=== PATIENT | female | born 1955 | race Caucasian/White ===

== ENCOUNTER → 2016-08-26 | Outpatient (CLI) | payer OTHER ==
[~2016-08-26] MED LIST: CIPR500T87 PO; SIMV5TAB5 PO
== END | disposition home or self-care (01) ==
LOC: RAD 11:55
PROVIDERS: ATTEND Nurse Practitioner Family
DX: M51.36 Other intervertebral disc degeneration, lumbar region (principal)
CPT/HCPCS: 72110

== ENCOUNTER → 2017-02-12 | Outpatient (CLI) | payer OTHER ==
[~2017-02-12] MED LIST changes: +LORA10TA75 PO; +NITR100C6 PO; +SIMV20TA3 PO
[2017-02-12 09:04] LABS: PATH.CAST-FLAG NOT PRESENT; SPERM-FLAG NOT PRESENT; SRC-FLAG NOT PRESENT; XTAL-FLAG NOT PRESENT; YLC-FLAG NOT PRESENT
== END | disposition home or self-care (01) ==
LOC: STAR 08:01
PROVIDERS: ATTEND Obstetrics & Gynecology Female Pelvic Medicine and Reconstructive Surgery
DX: Z01.818 Encounter for other preprocedural examination (principal); R94.31 Abnormal electrocardiogram [ECG] [EKG]; R32 Unspecified urinary incontinence; N81.10 Cystocele, unspecified; N81.6 Rectocele
CPT/HCPCS: 81001; 87086; 93005

== ENCOUNTER → 2017-09-18 | Outpatient (CLI) | payer OTHER | END | disposition home or self-care (01) | LOC: CFH 07:37 | PROVIDERS: ATTEND Nurse Practitioner Family | DX: Z12.31 Encounter for screening mammogram for malignant neoplasm of breast (principal) | CPT/HCPCS: 77067 ==

== ENCOUNTER → 2018-09-22 | Outpatient (CLI) | payer OTHER ==
[~2018-09-22] MED LIST changes: +SIMV5TAB14 PO; -SIMV5TAB5 PO
== END | disposition home or self-care (01) ==
LOC: CFH 10:06
PROVIDERS: ATTEND Nurse Practitioner Family
DX: Z12.31 Encounter for screening mammogram for malignant neoplasm of breast (principal)
CPT/HCPCS: 77067

== ENCOUNTER 2019-05-24 11:00 | Outpatient (CLI) | payer MEDICARE ==
[2019-05-24] MEDS ORDERED: ROSU5TAB PO (11:35)
[2019-05-24] MEDS ORDERED: ALEN70TA6 PO (11:35)
[2019-05-24] MEDS ORDERED: VITAMIN D PO (11:35)
[2019-05-24] MEDS ORDERED: TELM1TAB26 PO (11:35)
[2019-05-24 12:00] LABS: BASOPHILS # (AUTO) 0.03 x10^3/uL (0-0.1); BASOPHILS % (AUTO) 1 % (0-1); EOSINOPHILS # (AUTO) 0.17 x10^3/uL (0-0.4); EOSINOPHILS % (AUTO) 3 % (1-7); LYMPHOCYTES # (AUTO) 2.41 x10^3/uL (1-3.4); LYMPHOCYTES % (AUTO) 40 % (22-44); MD NO; MEAN CORPUSCULAR HEMOGLOBIN 31.2 pg (27.0-34.8); MEAN CORPUSCULAR HGB CONC 33.6 g/dL (32.4-35.8); MEAN CORPUSCULAR VOLUME 92.9 fL (80-100); MEAN PLATELET VOLUME 8.9 fL (7.4-10.4); MONOCYTES # (AUTO) 0.33 x10^3/uL (0.2-0.8); MONOCYTES % (AUTO) 5 % (2-9); NEUTROPHILS # (AUTO) 3.15 x10^3/uL (1.8-6.8); NEUTROPHILS % (AUTO) 52 % (42-75); PLATELET COUNT 269 x10^3/uL (130-400); RED BLOOD COUNT 4.38 x10^6/uL (3.82-5.3); RED CELL DISTRIBUTION WIDTH 12.8 % (9.6-15.2)
[2019-05-24 12:07] LABS: MICROSCOPIC NOT IND
[2019-05-24 12:08] LABS: INTERNATIONAL NORMALIZED RATIO 0.94 (0.93-1.1)
[2019-05-24 12:14] LABS: CULTURE INDICATED? NO
[2019-05-24 12:15] LABS: ALBUMIN 3.9 g/dL (3.4-5.0); ANION GAP 7 mmol/L (5-15); CALCIUM 8.8 mg/dL (8.5-10.1); CHLORIDE 108 mmol/L (98-107)
[2019-05-24 12:30] LABS: ALANINE AMINOTRANSFERASE 48 U/L (12-78); ALKALINE PHOSPHATASE 70 U/L (45-117); BILIRUBIN,TOTAL 0.5 mg/dL (0.2-1.0); CREATININE 0.72 mg/dL (0.55-1.02); TOTAL PROTEIN 7.1 g/dL (6.4-8.2)
== END 2019-05-24 23:59 | disposition home or self-care (01) ==
LOC: STAR 11:00
PROVIDERS: ATTEND Neurological Surgery
DX: Z01.818 Encounter for other preprocedural examination (principal); M47.22 Other spondylosis with radiculopathy, cervical region; M50.123 Cervical disc disorder at C6-C7 level with radiculopathy; Z79.899 Other long term (current) drug therapy
CPT/HCPCS: 36415; 71046; 72050; 80053; 81003; 85025; 85610; 85730; 93005

== ENCOUNTER 2019-05-31 05:42 | Inpatient (IN) | payer MEDICARE ==
[~2019-05-31] VITALS: Ht 152.4 cm; Wt 59.0 kg
[~2019-05-31 05:42] MED LIST changes: +ALEN70TA6 PO; +ROSU5TAB PO; +SIMV20TA19 PO; -SIMV20TA3 PO; +TELM1TAB26 PO; +VITAMIN D PO
[2019-05-31] MEDS: LACTATED RINGERS 1,000 ML IV SCH ×2 (06:26→07:16)
[2019-05-31] MEDS ORDERED: BUPIVACAINE/PF 0.5% ONE (06:59)
[2019-05-31] MEDS ORDERED: BACITRACIN 50,000 UNIT ONE ×2 (07:00)
[2019-05-31] MEDS ORDERED: THROMBIN 5,000 UNIT VIAL TP ONE (07:00)
[2019-05-31] MEDS ORDERED: EPINEPHRINE 1 MG/ML, 1ML ONE ×2 (07:00)
[2019-05-31] MEDS ORDERED: GABAPENTIN 300 MG CAPSULE PO ONE (07:30)
[2019-05-31] MEDS ORDERED: ACETAMINOPHEN 500 MG TABLET PO ONE (07:30)
[2019-05-31] MEDS ORDERED: MIDAZOLAM 1 MG/ML, 2ML ONE (07:32)
[2019-05-31] MEDS ORDERED: LIDOCAINE-MPF 2% ,5ML ONE (07:32)
[2019-05-31] MEDS ORDERED: PHENYLEPHRINE 10 MG/ML ONE (07:32)
[2019-05-31] MEDS ORDERED: SODIUM CHLORIDE 0.9% PF 10ML ONE (07:32)
[2019-05-31] MEDS ORDERED: FENTANYL PF 250 MCG/5ML ONE (07:32)
[2019-05-31] MEDS ORDERED: SUCCINYLCHOLINE 20 MG/ML, 10ML ONE (07:32)
[2019-05-31] MEDS ORDERED: DEXAMETHASONE 4 MG/ML, 1ML ONE ×2 (07:32)
[2019-05-31] MEDS ORDERED: ONDANSETRON 2MG/ML, 2ML ONE (07:32)
[2019-05-31] MEDS ORDERED: PROPOFOL 10 MG/ML, 20ML ONE (07:32)
[2019-05-31] MEDS ORDERED: CEFAZOLIN 1,000 MG ONE ×2 (07:32)
[2019-05-31] MEDS ORDERED: PROPOFOL 10 MG/ML, 50ML ONE (07:32)
[2019-05-31] MEDS ORDERED: MEPERIDINE/PF 25MG/ML,1ML IVPush PRN (08:00)
[2019-05-31] MEDS ORDERED: ONDANSETRON 2MG/ML, 2ML IV PRN ×2 (08:00→12:00)
[2019-05-31] MEDS ORDERED: EPHEDRINE 50 MG/ML, 1ML IVPush PRN (08:00)
[2019-05-31] MEDS ORDERED: OXYcodone 5 MG/5 ML ORAL.SOL UDC PO PRN (08:00)
[2019-05-31] MEDS ORDERED: hydrALAzine 20 MG/ML, 1ML IV PRN (08:00)
[2019-05-31] MEDS ORDERED: LABETALOL 5MG/ML, 20ML IV PRN (08:00)
[2019-05-31] MEDS ORDERED: HYDROmorphone 2 MG/ML, 1ML IVPush PRN (08:00)
[2019-05-31] MEDS ORDERED: PROMETHAZINE 25 MG/ML, 1ML IV PRN (08:00)
[2019-05-31] MEDS ORDERED: FENTANYL PF 100 MCG/2ML ONE (09:57)
[2019-05-31] MEDS ORDERED: HYDROmorphone 1 MG/ML, 1ML INJ ONE (09:58)
[2019-05-31] MEDS ORDERED: OXYcodone 5 MG/5 ML ORAL.SOL UDC ONE (09:59)
[2019-05-31] MEDS: FENTANYL PF 100 MCG/2ML IV PRN ×4 (10:01→10:43)
[2019-05-31] MEDS ORDERED: METHOCARBAMOL 1,000 MG in DEXTROSE 5% 100 ML IV ONE (10:30)
[2019-05-31 12:00] VITALS: BP 143/83
[2019-05-31] MEDS ORDERED: DIPHENHYDRAMINE 25 MG CAPSULE PO PRN (12:00)
[2019-05-31] MEDS ORDERED: HYDROcodone/APAP 5/325 TABLET PO PRN (12:00)
[2019-05-31] MEDS ORDERED: MAGNESIUM HYDROXIDE 8%, 30ML UDC PO PRN (12:00)
[2019-05-31] MEDS ORDERED: BISACODYL 10 MG SUPP PR PRN (12:00)
[2019-05-31] MEDS ORDERED: DIPHENHYDRAMINE 50 MG/ML, 1ML IVPush PRN (12:00)
[2019-05-31] MEDS ORDERED: HYDROmorphone 2 MG/ML, 1ML IM PRN (12:00)
[2019-05-31] MEDS ORDERED: PROMETHAZINE 25 MG/ML, 1ML IM PRN (12:00)
[2019-05-31] MEDS ORDERED: DIPHENHYDRAMINE 50 MG/ML, 1ML IM PRN (12:00)
[2019-05-31] MEDS ORDERED: HYDROmorphone 2MG TABLET PO PRN (12:00)
[2019-05-31] MEDS: NS + 20MEQ KCL 1,000 ML IV SCH ×2 (13:18→22:00)
[2019-05-31] MEDS: CEFAZOLIN PMX 1GM/50ML 50 ML IVPB SCH ×2 (17:24→23:24)
[2019-05-31] MEDS: METHOCARBAMOL 750 MG TABLET PO SCH ×2 (17:24→23:24)
[2019-05-31 20:11] VITALS: BP 116/67
[2019-05-31] MEDS: OXYcodone/APAP 5/325MG TABLET PO PRN (20:21)
[2019-05-31 23:29] VITALS: BP 112/65
[2019-06-01] MEDS: OXYcodone/APAP 5/325MG TABLET PO PRN (03:17)
[2019-06-01 03:41] VITALS: BP 102/51
[2019-06-01 07:09] VITALS: BP 121/69
[2019-06-01] MEDS: NS + 20MEQ KCL 1,000 ML IV SCH (07:30)
[2019-06-01] MEDS ORDERED: SENNA/DOCUSATE TABLET PO SCH (09:00)
[2019-06-01] MEDS: METHOCARBAMOL 750 MG TABLET PO SCH (09:26)
[2019-06-01] MEDS ORDERED: ENOXAPARIN 40 MG/0.4 ML SQ SCH (10:00)
[2019-06-01] MEDS ORDERED: OXYC-302 PO (10:09)
[2019-06-01] MEDS ORDERED: METH750T87 PO (10:09)
== END 2019-06-01 11:00 | disposition home or self-care (01) | DRG 472 ==
LOC: ORIP 05:42 → 4NE 11:16 → DCLOUNGE 06-01 10:45
PROVIDERS: ADMIT Neurological Surgery; ATTEND Neurological Surgery
PROC: 00NW0ZZ Release Cervical Spinal Cord, Open Approach (ICD-10-PCS; 2019-05-31)
PROC: 0RB30ZZ Excision of Cervical Vertebral Disc, Open Approach (ICD-10-PCS; 2019-05-31)
PROC: 01N10ZZ Release Cervical Nerve, Open Approach (ICD-10-PCS; 2019-05-31)
PROC: 4A11X4G Monitoring of Peripheral Nervous Electrical Activity, Intraoperative, External Approach (ICD-10-PCS; 2019-05-31)
PROC: 0RG20A0 Fusion of 2 or more Cervical Vertebral Joints with Interbody Fusion Device, Anterior Approach, Anterior Column, Open Approach (ICD-10-PCS; principal; 2019-05-31 07:30)
DX: M43.12 Spondylolisthesis, cervical region (principal); G99.2 Myelopathy in diseases classified elsewhere; M48.02 Spinal stenosis, cervical region; Z88.6 Allergy status to analgesic agent; I10 Essential (primary) hypertension; E78.5 Hyperlipidemia, unspecified; Z86.73 Personal history of transient ischemic attack (TIA), and cerebral infarction without residual deficits; G43.909 Migraine, unspecified, not intractable, without status migrainosus; Z90.49 Acquired absence of other specified parts of digestive tract; R20.8 Other disturbances of skin sensation; M54.12 Radiculopathy, cervical region
CPT/HCPCS: 72040; C1713; G0378; J0171; J0690; J1100; J1650; J2250; J2405; J2704; J3010; J3480; C1762; J0330; J2370; J2800; J7120

== ENCOUNTER 2019-11-06 13:22 | Emergency (ER) | payer MEDICARE ==
[~2019-11-06] VITALS: Ht 157.5 cm; Wt 58.0 kg
[~2019-11-06 13:22] MED LIST changes: +METH750T87 PO; +OXYC-302 PO
[2019-11-06 14:27] LABS: BASOPHILS # (AUTO) 0.03 x10^3/uL (0-0.1); BASOPHILS % (AUTO) 0 % (0-1); EOSINOPHILS # (AUTO) 0.17 x10^3/uL (0-0.4); EOSINOPHILS % (AUTO) 2 % (1-7); LYMPHOCYTES % (AUTO) 36 % (22-44); MD NO; MEAN CORPUSCULAR HEMOGLOBIN 30.4 pg (27.0-34.8); MEAN CORPUSCULAR HGB CONC 32.8 g/dL (32.4-35.8); MEAN CORPUSCULAR VOLUME 92.9 fL (80-100); MEAN PLATELET VOLUME 8.9 fL (7.4-10.4); MONOCYTES # (AUTO) 0.39 x10^3/uL (0.2-0.8); MONOCYTES % (AUTO) 5 % (2-9); NEUTROPHILS # (AUTO) 4.44 x10^3/uL (1.8-6.8); NEUTROPHILS % (AUTO) 57 % (42-75); PLATELET COUNT 300 x10^3/uL (130-400); RED BLOOD COUNT 4.93 x10^6/uL (3.82-5.3); RED CELL DISTRIBUTION WIDTH 13.9 % (9.6-15.2)
--- NOTE | 2019-11-06 14:33 | NUR ---
FOOT DOCTOR: PT TO ROOM VIA WHEELCHAIR AT THIS TIME. OLIVER
[2019-11-06 14:38] LABS: ANION GAP 5 mmol/L (5-15); CALCIUM 9.2 mg/dL (8.5-10.1); CHLORIDE 108 mmol/L (98-107)
[2019-11-06 14:45] LABS: ALANINE AMINOTRANSFERASE 74 U/L (12-78); ALKALINE PHOSPHATASE 79 U/L (45-117); BILIRUBIN,TOTAL 0.6 mg/dL (0.2-1.0); CREATININE 0.84 mg/dL (0.55-1.02); TOTAL PROTEIN 7.2 g/dL (6.4-8.2); TROPONIN I < 0.015 ng/mL (0.000-0.045)
[2019-11-06] MEDS ORDERED: KETOROLAC 30 MG/1 ML ONE (16:59)
[2019-11-06] MEDS ORDERED: KETOROLAC 30 MG/1 ML IM ONE (17:00)
[2019-11-06 17:06] VITALS: BP 131/69
--- NOTE | 2019-11-06 17:09 | NUR ---
MEDICATED FOR CONTINUED CP. AWAITING RE-EVAL
--- NOTE | 2019-11-06 18:06 | NUR ---
SOME IMPROVEMENT IN PAIN AFTER MEDICATED FOR SAME. AMBULATED TO DISCHARGE WINDOW, STEADY GAIT.
== END 2019-11-06 18:10 | disposition home or self-care (01) ==
LOC: ED 15:57
DX: R07.89 Other chest pain (principal); R06.02 Shortness of breath; R42 Dizziness and giddiness; R94.31 Abnormal electrocardiogram [ECG] [EKG]; I10 Essential (primary) hypertension; E78.5 Hyperlipidemia, unspecified
CPT/HCPCS: 36415; 71046; 80053; 84484; 85025; 93005; 96372; 99285; J1885

== ENCOUNTER 2019-12-24 13:05 | Outpatient (CLI) | payer MEDICARE | END 2019-12-24 23:59 | disposition home or self-care (01) | LOC: CFH 13:05 | PROVIDERS: ATTEND Nurse Practitioner Family | DX: I11.9 Hypertensive heart disease without heart failure (principal); E78.5 Hyperlipidemia, unspecified; I45.10 Unspecified right bundle-branch block; R07.9 Chest pain, unspecified; R94.31 Abnormal electrocardiogram [ECG] [EKG] | CPT/HCPCS: 93306 ==

== ENCOUNTER → 2020-02-14 | Outpatient (CLI) | payer MEDICARE | END | disposition home or self-care (01) | LOC: RAD 15:15 | PROVIDERS: ATTEND Nurse Practitioner Family | DX: R10.2 Pelvic and perineal pain (principal); R10.31 Right lower quadrant pain; Z90.710 Acquired absence of both cervix and uterus | CPT/HCPCS: 76856 ==

== ENCOUNTER → 2020-03-22 | Outpatient (CLI) | payer MEDICARE ==
[~2020-03-22] MED LIST changes: -ALEN70TA6 PO; +ALEN70TA66 PO
== END | disposition home or self-care (01) ==
LOC: CFH 07:58
PROVIDERS: ATTEND Internal Medicine Cardiovascular Disease
DX: R07.89 Other chest pain (principal); R06.02 Shortness of breath; R42 Dizziness and giddiness; I10 Essential (primary) hypertension
CPT/HCPCS: 78452; 93017; A9502

== ENCOUNTER 2020-06-23 09:46 | Outpatient (CLI) | payer MEDICARE ==
[~2020-06-23 09:46] MED LIST changes: -ALEN70TA66 PO; +ALEN70TA77 PO; -OXYC-302 PO; +OXYC1TAB14 PO
== END 2020-06-23 23:59 | disposition home or self-care (01) ==
LOC: RAD 09:46
PROVIDERS: ATTEND Physician Assistant
DX: R13.10 Dysphagia, unspecified (principal)
CPT/HCPCS: 74230

== ENCOUNTER 2020-07-30 16:45 | Emergency (ER) | payer MEDICARE ==
[~2020-07-30] VITALS: Ht 152.4 cm; Wt 60.0 kg
[2020-07-30] MEDS ORDERED: SODIUM CHLORIDE FLUSH 10ML SYR IVF ONE (17:30)
[2020-07-30] MEDS ORDERED: MORPHINE SULFATE 4 MG/ML, 1ML IVPush PRN (17:30)
[2020-07-30] MEDS ORDERED: KETOROLAC 30 MG/1 ML IVPush ONE (17:30)
[2020-07-30] MEDS ORDERED: KETOROLAC 30 MG/1 ML ONE (17:32)
--- NOTE | 2020-07-30 17:40 | NUR ---
PAIN IN LOWER BACK HAS GRADUALLY BEEN GETTING WORSE OVEER THE LAST 4 DAYS. SHE WOKE UP THIS MORNIG AND STATES SHE COULD NOT GET UP. WAITED MOST OF DAY TO SEE IF TOPICAL PAIN MANAGEMENT WOULD WORK BUT IT DID NOT SO SHE CAME TO ED
[2020-07-30] MEDS ORDERED: HYDROmorphone 1 MG/ML, 1ML INJ IV STA ×2 (17:55→19:23)
[2020-07-30] MEDS ORDERED: HYDROmorphone 1 MG/ML, 1ML INJ ONE ×2 (18:02→19:42)
--- NOTE | 2020-07-30 18:07 | NUR ---
PT OFF UNIT IN IMAGING.
--- NOTE | 2020-07-30 18:50 | NUR ---
AMBULATED PT TO DOOR AND BACK. PT SHOWING A LOT OF PAIN WHILE WALKING.
[2020-07-30 19:04] LABS: MICROSCOPIC AUTO
--- NOTE | 2020-07-30 20:24 | NUR ---
PT WAS ABLE TO WALK 15-20 FEET WITH INCREASED PAIN ON HER LEFT SIDE. PT ALSO NOTED TO STATE THAT SHE HAS SPME NUMBESS AND TINGLING DOWN HER LEFT LEG.
[2020-07-30 21:26] VITALS: BP 156/70
== END 2020-07-30 21:29 | disposition home or self-care (01) ==
LOC: ED 18:10
DX: M51.36 Other intervertebral disc degeneration, lumbar region (principal); I10 Essential (primary) hypertension
CPT/HCPCS: 72110; 81001; 87086; 96374; 96375; 96376; 99285; J1170; J1885